=== PATIENT | male | born 1950 | race American Indian/Alaskan Native ===

== ENCOUNTER 2018-05-01 07:13 | Day surgery (SDC) | payer MEDICARE, OTHER ==
[2018-05-01] MEDS ORDERED: Propofol 10 mg/ml Inj (20 ML) ONE (09:23)
--- NOTE | 2018-05-01 09:52 | CP.SDSHP ---
Same Day Surgery H & P - History Proposed Procedure: COLONSCOPY Pre-Op Diagnosis: SEE NOTES - Previous Medical/Surgical History Cardiac: Hypertension Neuro: Other Pain: 4.Moderate Pain - Allergies Allergies: Allergies No Known Allergies Allergy (Unverified 03/10/15 05:55) - Physical Exam General Appearance: N Vital Signs: Vital Signs 05/01/18 07:51 Temperature 98.4 F Pulse Rate 71 Respiratory 19 Rate Blood Pressure 130/82 O2 Sat by Pulse 98 Oximetry Mental Status: Alert & Oriented x3 Neuro: WNL Heart: Other Lungs: WNL GI: Other - {Optional Preform as Required} Breast: WNL Abdomen: Other Rectal: Other Integument: WNL : WNL Ortho: Other ENT: WNL - Impression Pt. Evaluated Today:Candidate for Anesthesia & Procedure: Yes - Date & Time Time: 09:51 Short Stay Discharge - Short Stay Discharge Admitting Diagnosis/Reason for Visit: CHANGE IN BOWEL HABITS, ABDOMINAL PAIN Disposition: HOME/ ROUTINE
[2018-05-01] MEDS ORDERED: Belladonna-Phenobarbital PO STA (09:53)
[2018-05-01 10:16] VITALS: TEMP 97
[2018-05-01 10:53] VITALS: O2SAT 97
[2018-05-01 11:49] VITALS: BP 133/86; PULSE 57; RESP 14
== END 2018-05-01 11:40 | disposition home or self-care (01) ==
LOC: C.ENDO 07:13
PROVIDERS: ATTEND Specialist
DX: K57.90 Diverticulosis of intestine, part unspecified, without perforation or abscess without bleeding (principal); R19.4 Change in bowel habit; K52.9 Noninfective gastroenteritis and colitis, unspecified; K64.8 Other hemorrhoids; K64.4 Residual hemorrhoidal skin tags
CPT/HCPCS: 45380; 88305; 88313; 88342; J2704